=== PATIENT | male | born 1960 | race Two or more races ===

== ENCOUNTER 2022-03-30 21:41 | Emergency (ER) | payer SELFPAY ==
[~2022-03-30] VITALS: Ht 165.1 cm; Wt 74.7 kg
[2022-03-31 02:15] VITALS: BP 148/90
== END 2022-03-31 02:15 | disposition home or self-care (01) ==
LOC: ER 21:41
DX: R04.0 Epistaxis (principal); N40.0 Benign prostatic hyperplasia without lower urinary tract symptoms; E78.00 Pure hypercholesterolemia, unspecified; Z98.890 Other specified postprocedural states
CPT/HCPCS: 30901; 99284